=== PATIENT | female | born 1935 | race Caucasian/White ===

== ENCOUNTER → 2016-09-25 14:58 | Emergency (ER) | payer OTHER ==
[~2016-09-25 14:58] MED LIST: ACCUPRIL10 MG PO; ACCUPRIL5 MG PO; ACETAMINOPHEN PO; ACETAMINOPHEN650 M3 PO; ADVAIR HFA 115-12 GM IH; ALLEGRA ALLERG180 MG PO; ALLEGRA PO; ALLEGRA180 MG PO; ASPIRIN81 M2 PO; ATORVASTATIN CA10 MG PO; FLOXIN OTIC5 ML OD; HUMIBID-LA600 MG PO; IPRAT-ALBUT 0.5-3 ML IH; IPRAT-ALBUT 0.5-3 ML INH; LEVAQUIN PO; LEVAQUIN750 M1 PO; LEVAQUIN750 MG PO; LIPITOR PO; LISINOPRIL10 MG PO; MONTELUKAST SOD10 MG PO; OMEPRAZOLE40 M1 PO; OMNICEF300 M1 PO; OXYGEN INH; PREDNISONE PO; PREDNISONE1 MG PO; PREDNISONE10 MG PO; PREDNISONE10 MG/DOSE PO; PRILOSEC40 MG PO; SPIRIVA18 MCG INH; SYMBICORT 16010.2 GM INH; SYMBICORT INH; VITAMIN D1000 UNI1 PO
== END | disposition home or self-care (01) ==
LOC: CFTX 14:58
DX: S51.812A Laceration without foreign body of left forearm, initial encounter (principal); Z23 Encounter for immunization; J44.9 Chronic obstructive pulmonary disease, unspecified; E78.5 Hyperlipidemia, unspecified; Z88.0 Allergy status to penicillin; W22.8XXA Striking against or struck by other objects, initial encounter; Y92.9 Unspecified place or not applicable
CPT/HCPCS: 90471; 90715; 99283

== ENCOUNTER → 2017-02-18 | Outpatient (CLI) | payer OTHER ==
[2017-02-18 10:04] LABS: BASOPHIL# 0.1 X10e3 (0-0.3); BASOPHIL% 1.2 % (0-2.5); EOSINOPHIL# 0.5 X10e3 (0-0.7); EOSINOPHIL% 5.1 % (0.0-7.0); HEMATOCRIT 36.4 % (35.0-45.0); HEMOGLOBIN 12.4 gm/dL (12.0-16.0); LYMPHOCYTE# 1.3 X10e3 (1.0-3.5); LYMPHOCYTE% 13.4 % (17.0-45.0); MEAN CELL VOLUME 91.8 FL (83-96); MEAN CORPUSCULAR HEMOGLOBIN 31.3 PG (28-34); MEAN CORPUSCULAR HGB CONC 34.1 g/dL (30-36); MEAN PLATELET VOLUME 6.9 FL (6.5-11.5); MONOCYTE# 0.7 X10e3 (0-1.0); MONOCYTE% 7.5 % (3.0-12.0); NEUTROPHIL# 6.8 X10e3 (1.5-7.1); NEUTROPHIL% 72.8 % (40-75); PLATELET COUNT 219 X10e3 (140-420); RED BLOOD COUNT 3.96 X10e (3.90-5.30); RED CELL DISTRIBUTION WIDTH 14.5 % (11.0-15.5); WHITE BLOOD COUNT 9.3 X10e3 (4.0-10.5)
[2017-02-18 10:05] LABS: DIFF IND NO
[2017-02-18 11:22] LABS: ALBUMIN SERUM 3.4 g/dL (3.5-5.0); BILIRUBIN,TOTAL 0.6 mg/dL (0.2-2.0); BUN/CREATININE RATIO 22.5; CALCIUM SERUM 8.8 mg/dL (8.4-10.2); CREATININE SERUM 0.8 mg/dL (0.6-1.4); GLOM FILT RATE Estimated 68.2 mL/min (>60); POTASSIUM 3.9 mmol/L (3.5-5.1); PROTEIN TOTAL SERUM 6.4 g/dL (6.0-8.3)
== END | disposition home or self-care (01) ==
LOC: CLAB 09:00
PROVIDERS: Internal Medicine Gastroenterology
DX: K52.9 Noninfective gastroenteritis and colitis, unspecified (principal)
CPT/HCPCS: 36415; 80053; 83630; 85025; 87045; 87427; 87493; 87899